=== PATIENT | male | born 1980 | race Caucasian/White ===

== ENCOUNTER 2018-11-14 18:20 | Emergency (ER) | payer OTHER ==
[2018-11-14 18:57] VITALS: TEMP 98.2; BMI 29.0
--- NOTE | 2018-11-14 19:11 | PDOC ---
History of Present Illness - General Chief Complaint: Alcohol intoxication Stated Complaint: INTOX Time Seen by Provider: 11/14/18 19:09 History Source: Patient - History of Present Illness Initial Comments: 11/14/18 19:28 The patient is a 38 year old male with a PMH of Hep C, HTN, Heroin (on suboxone ) and ETOH abuse (with associated DT's) who presents from [facility] for high blood pressure. States he drink 5-10 40's of vodka daily and his last drink was around 11 a.m. today. Patient now c/o non-focal headache. No vomiting, visual changes. Denies any chest pain, shortness of breath, abdominal pain, numbness/tingling, dysuria/hematuria. NKDA Surgical: non reported Social: ETOH abuse, h/o heroin abuse Past History - Past Medical History Allergies/Adverse Reactions: Allergies Allergy/AdvReac Type Severity Reaction Status Date / Time No Known Allergies Allergy Verified 11/14/18 18:55 COPD: No Psychiatric Problems: Yes (etoh abuse) - Suicide/Smoking/Psychosocial Hx Smoking History: Never smoked Have you smoked in the past 12 months: No Information on smoking cessation initiated: No Hx Alcohol Use: No Drug/Substance Use Hx: No Review of Systems - Review of Systems Constitutional: No: Chills, Fever Respiratory: No: Cough, Shortness of Breath Cardiac (ROS): No: Chest Pain, Lightheadedness, Palpitations, Syncope ABD/GI: No: Constipated, Diarrhea, Nausea, Vomiting : No: Burning, Dysuria *Physical Exam - Vital Signs Last Vital Signs Temp Pulse Resp BP Pulse Ox 98.2 F 97 H 16 156/94 100 11/14/18 18:20 11/14/18 18:20 11/14/18 18:20 11/14/18 18:20 11/14/18 18:20 - Physical Exam General Appearance: Yes: Nourished, Appropriately Dressed HEENT: positive: Normal Voice, Hearing Grossly Normal Neck: positive: Trachea midline, Supple Respiratory/Chest: positive: Lungs Clear, Normal Breath Sounds Cardiovascular: positive: S1, S2 Gastrointestinal/Abdominal: positive: Normal Bowel Sounds, Soft Neurologic: positive: Fully Oriented, Alert Heart Score/ECG Review - ECG Impressions Comment:: 11/14/18 23:13 HR 82, no deviation, prolonged QT, no DEVYN/STD/TWI ED Treatment Course - LABORATORY CBC & Chemistry Diagram: 11/14/18 21:00 11/14/18 21:00 Medical Decision Making - Medical Decision Making 11/14/18 19:32 38 year old male with ETOH and h/o DT's presents from [facility] for isolated elevated BP. Mildy hypertensive (156/94) - other VS unremarkable. Will medically clear including r/o ACS and discharge to [facility]. 11/14/18 20:55 Case d/w [facility] - will accept patient for detox 11/14/18 23:10 EKG non-ischemic as documented in EMR, prolonged QT c/w suboxone 11/14/18 23:11 11/14/18 23:14 No leukocytosis LFT's elevated Alcohol level < 3.0 Chest XR shows no infiltrate/consolidation 11/14/18 23:26 Patient reassessed @ bedside, tolerating PO intake, improved Repeat BP 143/81 HR 87 Will discharge to [facility] *DC/Admit/Observation/Transfer Diagnosis at time of Disposition: Alcohol intoxication - Discharge Dispostion Disposition: HOME Condition at time of disposition: Good Decision to Admit order: No - Referrals - Patient Instructions Printed Discharge Instructions: DI for Alcohol Abuse Additional Instructions: Return to the Emergency Department for any new/worsening/concerning symptoms. - Post Discharge Activity
[2018-11-14] MEDS ORDERED: chlordiazePOXIDE HCL 25 MG CAPSULE PO ONE (19:26)
[2018-11-14] MEDS ORDERED: SODIUM CHLORIDE 0.9% 500 ML INFUS.BAG IV ONE (19:27)
[2018-11-14] MEDS ORDERED: FOLIC ACID INJECTION - 1 MG, THIAMINE HCL 100 MG, MULTIVIT INJECTION ADULT 10 ML in SOD... IVPB ONE (20:06)
[2018-11-14 21:14] LABS: BASO % 0.8 % (0-2.0); EOS % 0.5 % (0-4.5); HEMATOCRIT 43.4 % (35.4-49); HEMOGLOBIN 15.1 GM/dL (11.7-16.9); LYMPH % 18.7 % (8-40); MCH 32.1 pg (25.7-33.7); MCHC 34.9 g/dl (32.0-35.9); MEAN PLT VOLUME 8.2 fl (7.5-11.1); MONO % 10.8 % (3.8-10.2); NEUT % 69.2 % (42.8-82.8); PLATELET COUNT 147 K/MM3 (134-434); RBC 4.72 M/mm3 (4.00-5.60); RDW 14.4 % (11.9-15.9); WHITE BLOOD COUNT 8.3 K/mm3 (4.0-10.0)
[2018-11-14] MEDS ORDERED: chlordiazePOXIDE HCL 25 MG CAPSULE ONE (21:16)
[2018-11-14 21:43] LABS: ALBUMIN 3.9 g/dl (3.4-5.0); ALK PHOS 113 U/L (45-117); ANION GAP 7 MMOL/L (8-16); BILIRUBIN,TOTAL 1.2 mg/dL (0.2-1); BLOOD UREA NITROGEN 8 mg/dL (7-18); CALCIUM 8.7 mg/dL (8.5-10.1); CHLORIDE 100 mmol/L (98-107); CO2 31 mmol/L (21-32); CREATININE 0.8 mg/dL (0.55-1.3); GLUCOSE,RANDOM 109 mg/dL (74-106); POTASSIUM 3.8 mmol/L (3.5-5.1); SGOT/AST 99 U/L (15-37); SGPT/ALT 85 U/L (13-61); SODIUM 139 mmol/L (136-145); TOT PROT 7.4 g/dl (6.4-8.2)
--- NOTE | 2018-11-14 23:19 | PDOC ---
Documentation entered by Eloy Coyne SCRIBE, acting as scribe for Yudelka Lenz MD. Yudelka Lenz MD: This documentation has been prepared by the Stanford luna Xhesika, SCRIBE, under my direction and personally reviewed by me in its entirety. I confirm that the documentation accurately reflects all work, treatment, procedures, and medical decision making performed by me. Attending Attestation - Resident Resident Name: Myrna Martinez - ED Attending Attestation I have performed the following: I have examined & evaluated the patient, The case was reviewed & discussed with the resident, I agree w/resident's findings & plan, Exceptions are as noted - HPI HPI: 11/14/18 20:24 The patient is a 38 year old male, with a significant past medical history of Hep C, HTN, Heroine abuse and ETOH abuse who presents to the emergency department with alcohol intoxication. The patient went to [facility] for detox, however, he was sent here to be cleared. The patient states he drinks 5-10 quarts of vodka daily and his last drink was at 11am today. Patient states he is unsteady when he tried to ambulate. The patient denies chest pain, headache or dizziness. The patient denies fever, chills, nausea, vomit, diarrhea or constipation. The patient denies dysuria, frequency, urgency or hematuria. Allergies: NKDA Past surgical history: None reported Social history: Heroine abuse and ETOH abuse - Physicial Exam PE: 11/14/18 20:24 GENERAL: (+) disheveled. (+) reddish complexion. Awake, alert, and fully oriented HEAD: No signs of trauma EYES: PERRLA, EOMI, sclera anicteric, conjunctiva clear ENT: Auricles normal inspection, hearing grossly normal, nares patent, oropharynx clear without exudates. Moist mucosa NECK: Normal ROM, supple, no lymphadenopathy, JVD, or masses LUNGS: Breath sounds equal, clear to auscultation bilaterally. No wheezes, and no crackles HEART: Regular rate and rhythm, normal S1 and S2, no murmurs, rubs or gallops ABDOMEN: Soft, nontender, normoactive bowel sounds. No guarding, no rebound. No masses EXTREMITIES: Normal range of motion, no edema. No clubbing or cyanosis. No cords, erythema, or tenderness NEUROLOGICAL: Cranial nerves II through XII grossly intact. Normal speech. - Medical Decision Making 11/14/18 23:18 pt is alert and conversant ekg is nsr negative troponin pt has no vomiting or fever or diarrhea or chest pain pt is medically cleared for [facility] detox
[2018-11-15 01:25] VITALS: BP 145/90; PULSE 90
--- NOTE | 2018-11-15 11:38 | EKG ---
Test Reason : Blood Pressure : / mmHG Vent. Rate : 082 BPM Atrial Rate : 082 BPM P-R Int : 148 ms QRS Dur : 084 ms QT Int : 426 ms P-R-T Axes : 061 062 054 degrees QTc Int : 497 ms NORMAL SINUS RHYTHM PROLONGED QT ABNORMAL ECG NO PREVIOUS ECGS AVAILABLE Confirmed by Edgar Taveras MD ([id number]) on 11/15/2018 11:37:39 AM Referred By: Confirmed By:Edgar Taveras MD
== END 2018-11-15 01:25 | disposition home or self-care (01) ==
LOC: JER 18:20
PROC: 3E033GC Introduction of Other Therapeutic Substance into Peripheral Vein, Percutaneous Approach (ICD-10-PCS; principal; 2018-11-14)
DX: F10.120 Alcohol abuse with intoxication, uncomplicated (principal); I10 Essential (primary) hypertension; F11.10 Opioid abuse, uncomplicated; B18.2 Chronic viral hepatitis C
CPT/HCPCS: 36415; 71045-TC-FY; 80053; 80307; 82550; 84484; 85025; 93005; 93010; 96365; 96366; 99282-25; J7030

== ENCOUNTER 2018-11-15 02:11 | Inpatient (IN) | payer OTHER ==
--- NOTE | 2018-11-14 19:54 | HP ---
Screened but not Admitted - Documentation of Visit Screened but not Admitted: Yes Left Prior to Completion of Assessment: No Insurance Authorization Denied: No Patient Does Not Meet Criteria for Admission: No Level of Care Recommended at this Time: ER Evaluation/Care Additional Information/Explanation: Pt states he felt like he was about to have a seizure. BP high at 168/102, Pr 110. JEANNIE-0. Has been binge drinking. Last drink about 6 hours ago. Considering his high BP and RI and sense of impending seizure and a delay here for him to get medications- pt was sent to ER
--- NOTE | 2018-11-15 02:34 | HP ---
CIWA Score Nausea/Vomitin (x 10) Muscle Tremors: 4-Moderate,w/Arms Extend Anxiety: 3 Agitation: 3 Paroxysmal Sweats: 2 Orientation: 1-Uncertain about Date Tacttile Disturbances: 0-None Auditory Disturbances: 0-None Visual Disturbances: 0-None Headache: 3-Moderate CIWA-Ar Total Score: 19 - Admission Criteria OASAS Guidelines: Admission for Medically Managed Detox: Requires at least one of the followin. CIWA greater than 12 2. Seizures within the past 24 hours 3. Delirium tremens within the past 24 hours 4. Hallucinations within the past 24 hours 5. Acute intervention needed for co occurring medical disorder 6. Acute intervention needed for co occurring psychiatric disorder 7. Severe withdrawal that cannot be handled at a lower level of care (continued vomiting, continued diarrhea, abnormal vital signs) requiring intravenous medication and/or fluids 8. Admission ROS [facility] Chief Complaint: Alcohol withdrawal symptoms Allergies/Adverse Reactions: Allergies Allergy/AdvReac Type Severity Reaction Status Date / Time No Known Allergies Allergy Verified 11/14/18 18:55 History of Present Illness: 38 years old male with a long history of alcohol dependence is seeking admission to detox. Patient has been in previous detox at [facility] and reports 18 months of sobriety. He has medical history of Hep C, depression, seizures and hypertension. Denies suicide attempt and suicidal ideation at this time. This is his first detox and admission at [facility]. He is on Suboxone (Gen ) 8-2mg sublingual film dispensed by Dr. Jessica Barrett. Last filled on 11/04/2018. Last day medicated is 11/15/2018. Exam Limitations: No Limitations - Ebola screening Have you traveled outside of the country in the last 21 days: No Have you had contact with anyone from an Ebola affected area: No Have you been sick,other than usual withdrawal symptoms: No - Review of Systems Constitutional: Chills, Loss of Appetite, Night Sweats, Changes in sleep, Weakness EENT: reports: Sinus Pressure Respiratory: reports: No Symptoms reported Cardiac: reports: No Symptoms Reported GI: reports: Diarrhea (x 3), Poor Appetite, Poor Fluid Intake, Vomiting (x 10), Abdominal cramping : reports: No Symptoms Reported Musculoskeletal: reports: No Symptoms Reported Integumentary: reports: Dryness, Flushing Neuro: reports: Headache, Tremors Endocrine: reports: No Symptoms Reported Hematology: reports: No Symptoms Reported Psychiatric: reports: Mood/Affect Appropiate Other Systems: Reviewed and Negative Patient History - Patient Medical History Hx Anemia: No Hx Asthma: No Hx Chronic Obstructive Pulmonary Disease (COPD): No Hx Cancer: No Hx Cardiac Disorders: No Hx Congestive Heart Failure: No Hx Hypertension: Yes (Not on medication) Hx Hypercholesterolemia: No Hx Pacemaker: No HX Cerebrovascular Accident: No Hx Seizures: Yes (Not on medication) Hx Dementia: No Hx Diabetes: No Hx Gastrointestinal Disorders: No Hx Liver Disease: Yes (Hep C) Hx Genitourinary Disorders: No Hx Sexually Transmitted Disorders: No Hx Renal Disease (ESRD): No Hx Thyroid Disease: No Hx Human Immunodeficiency Virus (HIV): No (Negative 2018) Hx Hepatitis C: Yes (Not treated) Hx Depression: Yes (Not on medication) Hx Suicide Attempt: No (Denies suicidal ideation at this time) Hx Bipolar Disorder: No Hx Schizophrenia: No - Patient Surgical History Past Surgical History: No - PPD History Previous Implant?: No Documented Results: Negative w/o proof Implanted On Prior [facility] Admission?: No PPD to be Administered?: Yes - Reproductive History Patient is a Female of Child Bearing Age (11 -55 yrs old): No (Male) - Smoking Cessation Smoking history: Never smoked Have you smoked in the past 12 months: No Hx Chewing Tobacco Use: No Initiated information on smoking cessation: No - Substance & Tx. History Hx Alcohol Use: Yes Substance Use Type: Alcohol Hx Substance Use Treatment: Yes ([facility]) - Substances abused Alcohol Substance route: Oral Frequency: Daily Amount used: 8 pints of rum Age of first use: 14 Date of last use: 11/14/18 Family Disease History - Family Disease History Family History: Denies Admission Physical Exam S - Physical General Appearance: Yes: Moderate Distress, Alcohol on Breath, Sweating, Anxious HEENTM: Yes: Within Normal Limits Respiratory: Yes: Lungs Clear, Normal Breath Sounds, No Respiratory Distress Neck: Yes: Supple Breast: Yes: Breast Exam Deferred Cardiology: Yes: Tachycardia Abdominal: Yes: Normal Bowel Sounds Genitourinary: Yes: Within Normal Limits Back: Yes: Normal Inspection Musculoskeletal: Yes: Within Normal Limits Extremities: Yes: Tremors, Swelling (bilatyeral hands, ankles and face) Neurological: Yes: Alert, Normal Mood/Affect Integumentary: Yes: Warm Lymphatic: Yes: Within Normal Limits - Diagnostic (1) Alcohol dependence with uncomplicated withdrawal Current Visit: Yes Status: Acute (2) Hep C w/o coma, chronic Current Visit: Yes Status: Chronic (3) Hypertension Current Visit: Yes Status: Chronic Qualifiers: Hypertension type: essential hypertension Qualified Code(s): I10 - Essential (primary) hypertension (4) Depression Current Visit: Yes Status: Chronic Qualifiers: Depression Type: unspecified Qualified Code(s): F32.9 - Major depressive disorder, single episode, unspecified (5) Seizure Current Visit: Yes Status: Chronic Cleared for Admission [facility] - Detox or Rehab S Level of Care: Medically Managed Detox Regimen/Protocol: Librium Vital Signs - Vital Signs Vital signs refused: No Temperature: 98.4 F Temperature source: Oral Pulse Rate: 92 Respiratory Rate: 20 Blood Pressure: 164/100 BP Location: Right Arm Blood Pressure position: Sitting - Height Height: 6 ft 1 in - Weight Weight: 230 lb - BMI Body Mass Index (BMI): 30.3 - Bowel Function Bowel Movement: Yes Urine Drug Screen - Test Device Lot number: [id number] Expiration date: 06/10/20 - Control Is test valid?: Yes - Results Drug screen NEGATIVE: No Urine drug screen results: THC-Marijuana, BZO-Benzodiazepines, BUP-Suboxone Inpatient Rehab Admission - Rehab Decision to Admit Inpatient rehab admission?: No
[2018-11-15] MEDS ORDERED: MAGNESIUM CITRATE 300 ML BOTTLE PO PRN (02:43)
[2018-11-15] MEDS ORDERED: MAGNESIUM HYDROX 2400MG/30ML ORAL SUSPENSION 30 ML CUP PO PRN (02:43)
[2018-11-15] MEDS ORDERED: IBUPROFEN 400 MG TABLET (FP) PO PRN (02:43)
[2018-11-15] MEDS ORDERED: ACETAMINOPHEN 325 MG TABLET (FP) PO PRN ×2 (02:43)
[2018-11-15] MEDS ORDERED: MENTHOL/PHENOL 1 EACH UD MM PRN (02:43)
[2018-11-15] MEDS ORDERED: BISMUTH SUBSALICYLATE 524 MG/30 ML UD PO PRN (02:43)
[2018-11-15] MEDS ORDERED: MAG HYDROX/AL HYDROX/SIMETH 30 ML UNIT-DOSE CUP PO PRN (02:43)
[2018-11-15] MEDS ORDERED: hydrOXYzine PAMOATE 25 MG CAPSULE (FP) PO PRN (02:43)
[2018-11-15] MEDS ORDERED: METHOCARBAMOL 500 MG TABLET PO PRN (02:43)
[2018-11-15] MEDS ORDERED: cloNIDine HCL 0.1 MG TABLET PO ONE (02:59)
[2018-11-15 03:05] VITALS: BMI 30.3
[2018-11-15] MEDS: chlordiazePOXIDE HCL 25 MG CAPSULE PO PRN (03:47)
[2018-11-15] MEDS: MELATONIN 5 MG TABLETS PO PRN (03:47)
[2018-11-15] MEDS: chlordiazePOXIDE HCL 25 MG CAPSULE PO SCH ×4 (06:02→22:09)
[2018-11-15] MEDS: PRENATAL VITAMINS W/ FOLIC ACID TABLET (FP) PO SCH (09:52)
[2018-11-15] MEDS: BUPRENORPHINE/NALOXONE 8 MG/2 MG FILM PACKET SL SCH ×2 (09:52→22:09)
--- NOTE | 2018-11-15 10:45 | PN ---
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
[2018-11-15] MEDS ORDERED: chlordiazePOXIDE HCL 25 MG CAPSULE PO ONE (14:00)
--- NOTE | 2018-11-15 14:19 | EKG ---
Test Reason : Blood Pressure : / mmHG Vent. Rate : 077 BPM Atrial Rate : 077 BPM P-R Int : 156 ms QRS Dur : 082 ms QT Int : 422 ms P-R-T Axes : 072 063 054 degrees QTc Int : 477 ms NORMAL SINUS RHYTHM NORMAL ECG WHEN COMPARED WITH ECG OF 14-NOV-2018 22:56, NO SIGNIFICANT CHANGE WAS FOUND Confirmed by Edgar Taveras MD ([id number]) on 11/15/2018 2:19:11 PM Referred By: Confirmed By:Edgar Taveras MD
[2018-11-15] MEDS: THIAMINE HCL 100 MG TABLET (FP) PO SCH (22:08)
[2018-11-16] MEDS: chlordiazePOXIDE HCL 25 MG CAPSULE PO SCH ×4 (05:35→22:17)
[2018-11-16] MEDS: PRENATAL VITAMINS W/ FOLIC ACID TABLET (FP) PO SCH (10:09)
[2018-11-16] MEDS: BUPRENORPHINE/NALOXONE 8 MG/2 MG FILM PACKET SL SCH ×2 (10:09→22:17)
--- NOTE | 2018-11-16 10:32 | PN ---
S CIWA - CIWA Score Nausea/Vomitin-Mild Nausea/No Vomiting Muscle Tremors: 3 Anxiety: 2 Agitation: 3 Paroxysmal Sweats: 1-Minimal Palms Moist Orientation: 2-Disoriented Date<2 days Tacttile Disturbances: 0-None Auditory Disturbances: 0-None Visual Disturbances: 0-None Headache: 1-Very Mild CIWA-Ar Total Score: 13 BHS Progress Note (SOAP) Subjective: doing fine with suboxone feeling better today Objective: 11/16/18 10:31 Vital Signs Temperature 98.6 F 11/16/18 10:01 Pulse Rate 75 11/16/18 10:01 Respiratory Rate 20 11/16/18 10:01 Blood Pressure 144/94 11/16/18 10:01 O2 Sat by Pulse Oximetry (%) 11/16/18 10:32 lab pending Assessment: 11/16/18 10:32 withdrawal sx 11/16/18 10:33 denies history of hypertension Plan: continue detox begin amlodipin 5 mg po bid clonidine 0.1 mg po q6h prn for hypertension
[2018-11-16] MEDS ORDERED: cloNIDine HCL 0.1 MG TABLET PO PRN (10:33)
[2018-11-16 12:38] LABS: HEMATOCRIT 42.5 % (35.4-49); HEMOGLOBIN 14.7 GM/dL (11.7-16.9); MCH 32.3 pg (25.7-33.7); MCHC 34.7 g/dl (32.0-35.9); MEAN CELL VOLUME 93.3 fl (80-96); MEAN PLT VOLUME 8.6 fl (7.5-11.1); PLATELET COUNT 108 K/MM3 (134-434); RBC 4.56 M/mm3 (4.00-5.60); RDW 14.1 % (11.9-15.9); WHITE BLOOD COUNT 3.8 K/mm3 (4.0-10.0)
[2018-11-16 12:55] LABS: ALBUMIN 3.3 g/dl (3.4-5.0); ALK PHOS 97 U/L (45-117); ANION GAP 7 MMOL/L (8-16); BILIRUBIN,TOTAL 0.9 mg/dL (0.2-1); BLOOD UREA NITROGEN 10 mg/dL (7-18); CALCIUM 8.8 mg/dL (8.5-10.1); CHLORIDE 103 mmol/L (98-107); CO2 28 mmol/L (21-32); CREATININE 0.8 mg/dL (0.55-1.3); GLUCOSE,RANDOM 99 mg/dL (74-106); POTASSIUM 3.4 mmol/L (3.5-5.1); SGOT/AST 117 U/L (15-37); SGPT/ALT 83 U/L (13-61); SODIUM 138 mmol/L (136-145); TOT PROT 6.6 g/dl (6.4-8.2)
[2018-11-16] MEDS: chlordiazePOXIDE HCL 25 MG CAPSULE PO PRN (12:59)
[2018-11-16] MEDS: amLODIPine BESYLATE 5 MG TABLET (FP) PO SCH ×2 (12:59→22:17)
[2018-11-16] MEDS: THIAMINE HCL 100 MG TABLET (FP) PO SCH (22:17)
[2018-11-17] MEDS ORDERED: chlordiazePOXIDE HCL 10 MG CAPSULE PO PRN (05:00)
[2018-11-17] MEDS: chlordiazePOXIDE HCL 10 MG CAPSULE PO SCH ×4 (05:33→22:18)
[2018-11-17] MEDS: amLODIPine BESYLATE 5 MG TABLET (FP) PO SCH ×2 (10:46→22:18)
[2018-11-17] MEDS: PRENATAL VITAMINS W/ FOLIC ACID TABLET (FP) PO SCH (10:46)
[2018-11-17] MEDS: BUPRENORPHINE/NALOXONE 8 MG/2 MG FILM PACKET SL SCH ×2 (10:47→22:18)
--- NOTE | 2018-11-17 11:23 | PN ---
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 called Dr Jessica Barrett at [phone] for follow up appointment, weekend clinic open for established clients 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 patient is able to walk in on Wednesday for suboxone refill Objective: 11/17/18 11:30 Vital Signs Temperature 97.3 F L 11/17/18 09:12 Pulse Rate 75 11/17/18 09:12 Respiratory Rate 18 11/17/18 09:12 Blood Pressure 129/81 11/17/18 09:12 O2 Sat by Pulse Oximetry (%) Laboratory Last Values WBC 3.8 K/mm3 (4.0-10.0) L 11/16/18 07:30 RBC 4.56 M/mm3 (4.00-5.60) 11/16/18 07:30 Hgb 14.7 GM/dL (11.7-16.9) 11/16/18 07:30 Hct 42.5 % (35.4-49) 11/16/18 07:30 MCV 93.3 fl (80-96) 11/16/18 07:30 MCH 32.3 pg (25.7-33.7) 11/16/18 07:30 MCHC 34.7 g/dl (32.0-35.9) 11/16/18 07:30 RDW 14.1 % (11.9-15.9) 11/16/18 07:30 Plt Count 108 K/MM3 (134-434) L D 11/16/18 07:30 MPV 8.6 fl (7.5-11.1) 11/16/18 07:30 Sodium 138 mmol/L (136-145) 11/16/18 07:30 Potassium 3.4 mmol/L (3.5-5.1) L 11/16/18 07:30 Chloride 103 mmol/L (98-107) 11/16/18 07:30 Carbon Dioxide 28 mmol/L (21-32) 11/16/18 07:30 Anion Gap 7 MMOL/L (8-16) L 11/16/18 07:30 BUN 10 mg/dL (7-18) 11/16/18 07:30 Creatinine 0.8 mg/dL (0.55-1.3) 11/16/18 07:30 Creat Clearance w eGFR 107.07 (>60) 11/16/18 07:30 Random Glucose 99 mg/dL (74-106) 11/16/18 07:30 Calcium 8.8 mg/dL (8.5-10.1) 11/16/18 07:30 Total Bilirubin 0.9 mg/dL (0.2-1) 11/16/18 07:30 AST 117 U/L (15-37) H 11/16/18 07:30 ALT 83 U/L (13-61) H 11/16/18 07:30 Alkaline Phosphatase 97 U/L (45-117) 11/16/18 07:30 Total Protein 6.6 g/dl (6.4-8.2) 11/16/18 07:30 Albumin 3.3 g/dl (3.4-5.0) L 11/16/18 07:30 RPR Titer Nonreactive (NONREACTIVE) 11/16/18 07:30 lab noted 11/17/18 11:31 repeat K+ and ast ordered Assessment: 11/17/18 11:32 alcohol withdrawal sx repeat K+ and ast Plan: continue detox
[2018-11-17] MEDS: MELATONIN 5 MG TABLETS PO PRN (22:18)
[2018-11-17] MEDS: THIAMINE HCL 100 MG TABLET (FP) PO SCH (22:18)
[2018-11-18] MEDS ORDERED: chlordiazePOXIDE HCL 10 MG CAPSULE PO SCH (05:00)
[2018-11-18 09:27] VITALS: BP 152/86; PULSE 94; TEMP 97
[2018-11-18] MEDS: PRENATAL VITAMINS W/ FOLIC ACID TABLET (FP) PO SCH (10:48)
[2018-11-18] MEDS: amLODIPine BESYLATE 5 MG TABLET (FP) PO SCH (10:48)
[2018-11-18] MEDS: BUPRENORPHINE/NALOXONE 8 MG/2 MG FILM PACKET SL SCH (10:48)
--- NOTE | 2018-11-18 13:55 | DS ---
[facility] Detox Discharge Summary Admission Date: 11/15/18 Discharge Date: 11/18/18 - History Present History: Alcohol Dependence, Opioid Dependence Additional Comments: PATIENT REPORTS THAT CURRENT WITHDRAWAL / DETOX SYMPTOMS ARE MINIMAL IN DEGREE AND THAT HE FEELS WELL OVERALL AT TIME OF DISCHARGE FROM DETOX UNIT. PATIENT GOING TO [facility] ([place] FOR AFTERCARE. PATIENT WAS DISCHARGED FROM DETOX UNIT TO BE TAKEN OVER TO REHAB UNIT IN STABLE MEDICAL CONDITION. Pertinent Past History: Hep C, Depression, HTN, History of Suboxone Maintenance Therapy, History of Seizures, Hypokalemia. - Physical Exam Results Vital Signs: Vital Signs Temperature 97.0 F L 11/18/18 09:26 Pulse Rate 94 H 11/18/18 09:26 Respiratory Rate 18 11/18/18 09:26 Blood Pressure 152/86 11/18/18 09:26 O2 Sat by Pulse Oximetry (%) Pertinent Admission Physical Exam Findings: WITHDRAWAL SYMPTOMS. Laboratory Tests 11/16/18 11/16/18 11/16/18 07:30 07:30 07:30 WBC 3.8 L RBC 4.56 Hgb 14.7 Hct 42.5 MCV 93.3 MCH 32.3 MCHC 34.7 RDW 14.1 Plt Count 108 L D MPV 8.6 Sodium 138 Potassium 3.4 L Chloride 103 Carbon Dioxide 28 Anion Gap 7 L BUN 10 Creatinine 0.8 Creat Clearance w eGFR 107.07 Random Glucose 99 Calcium 8.8 Total Bilirubin 0.9 AST 117 H ALT 83 H Alkaline Phosphatase 97 Total Protein 6.6 Albumin 3.3 L RPR Titer Nonreactive LABS NOTED. - Treatment Hospital Course: Detox Protocol Followed, Detoxed Safely, Responded well, Discharged Condition Good, Rehab Referral Accepted Patient has Accepted a Rehab Referral to: [facility] ([place], [place]). - Medication Discharge Medications: Ambulatory Orders Suboxone 8Mg/2Mg Sl Film - 1 film SL BID 11/15/18 Buprenorphine/Naloxone [Suboxone 8Mg/2Mg Sl Film -] 1 each SL BID 2 Days #3 film MDD 2 11/17/18 - Diagnosis (1) Alcohol dependence with uncomplicated withdrawal Status: Acute (2) Depression Status: Chronic Qualifiers: Depression Type: unspecified Qualified Code(s): F32.9 - Major depressive disorder, single episode, unspecified (3) Hep C w/o coma, chronic Status: Chronic (4) Hypertension Status: Chronic Qualifiers: Hypertension type: essential hypertension Qualified Code(s): I10 - Essential (primary) hypertension (5) Seizure Status: Chronic (6) Hypokalemia Status: Acute - AMA Did Patient Leave Against Medical Advice: No
--- NOTE | 2018-11-18 13:56 | PN ---
S CIWA - CIWA Score Nausea/Vomitin-No Nausea/No Vomiting Muscle Tremors: None Anxiety: 3 Agitation: 0-Normal Activity Paroxysmal Sweats: 2 Orientation: 0-Oriented Tacttile Disturbances: 1-Very Mild Itch/Numbness Auditory Disturbances: 0-None Visual Disturbances: 1-Very Mild Sensitivity Headache: 0-None Present CIWA-Ar Total Score: 7 BHS Progress Note (SOAP) Subjective: Tremors, Anxious. Objective: PATIENT A & O X 3, OBSERVED AMBULATING ON UNIT UNASSISTED. IN NO ACUTE DISTRESS. 11/18/18 13:58 Vital Signs Temperature 97.0 F L 11/18/18 09:26 Pulse Rate 94 H 11/18/18 09:26 Respiratory Rate 18 11/18/18 09:26 Blood Pressure 152/86 11/18/18 09:26 O2 Sat by Pulse Oximetry (%) Laboratory Tests 11/16/18 11/16/18 11/16/18 07:30 07:30 07:30 WBC 3.8 L RBC 4.56 Hgb 14.7 Hct 42.5 MCV 93.3 MCH 32.3 MCHC 34.7 RDW 14.1 Plt Count 108 L D MPV 8.6 Sodium 138 Potassium 3.4 L Chloride 103 Carbon Dioxide 28 Anion Gap 7 L BUN 10 Creatinine 0.8 Creat Clearance w eGFR 107.07 Random Glucose 99 Calcium 8.8 Total Bilirubin 0.9 AST 117 H ALT 83 H Alkaline Phosphatase 97 Total Protein 6.6 Albumin 3.3 L RPR Titer Nonreactive LABS NOTED. Assessment: 11/18/18 13:59 COMPLETION OF DETOX REGIMEN. 11/18/18 14:00 Plan: SINCE PATIENT REPORTS THAT CURRENT WITHDRAWAL / DETOX SYMPTOMS ARE MINIMAL IN DEGREE AND THAT HE FEELS WELL OVERALL, AT PATIENTS REQUEST, HE WAS GRANTED AN EARLY DISCHARGE FROM DETOX UNIT TODAY SO THAT HE MAY PROCEED ON TO [facility]CARE [facility] ([place], [place]).
== END 2018-11-18 13:20 | disposition other institution (70) | DRG 775 ==
LOC: YASAS 02:11 → Y3N 02:50
PROVIDERS: ADMIT Surgery; ATTEND Surgery
PROC: HZ2ZZZZ Detoxification Services for Substance Abuse Treatment (ICD-10-PCS; principal; 2018-11-15)
DX: F10.230 Alcohol dependence with withdrawal, uncomplicated (principal); F32.9 Major depressive disorder, single episode, unspecified; I10 Essential (primary) hypertension; E78.5 Hyperlipidemia, unspecified; B18.2 Chronic viral hepatitis C; Z86.69 Personal history of other diseases of the nervous system and sense organs
CPT/HCPCS: 36415; 71045-TC-FY; 80053; 80307; 82550; 84484; 85025; 85027; 86593; 93005; 93010; 96365; 96366; 99282-25; J0735; J7030

== ENCOUNTER 2018-11-18 13:34 | Inpatient (IN) | payer OTHER ==
[2018-11-18] MEDS ORDERED: ACETAMINOPHEN 325 MG TABLET (FP) PO PRN (14:05)
[2018-11-18] MEDS ORDERED: guaiFENesin 200 MG/10 ML 10 ML UNIT-DOSE CUPS PO PRN (14:05)
[2018-11-18] MEDS ORDERED: MAGNESIUM HYDROX 2400MG/30ML ORAL SUSPENSION 30 ML CUP PO PRN (14:05)
[2018-11-18] MEDS ORDERED: LOPERAMIDE HCL 2 MG CAPSULE PO PRN (14:05)
[2018-11-18] MEDS ORDERED: MENTHOL/PHENOL 1 EACH UD MM PRN (14:05)
[2018-11-18] MEDS ORDERED: MAG HYDROX/AL HYDROX/SIMETH 30 ML UNIT-DOSE CUP PO PRN (14:05)
[2018-11-18] MEDS ORDERED: P-EPHED 60MG/TRIPROLIDI 2.5MG TABLET PO PRN (14:05)
[2018-11-18] MEDS ORDERED: MAGNESIUM CITRATE 300 ML BOTTLE PO PRN (14:05)
--- NOTE | 2018-11-18 14:09 | HP ---
EDILBERTO AGUIAR Rehab Assess/Revision - Admission History Admitted to Rehab from: [facility] Date of Admission to Rehab: 11/18/2018 - Vital signs Vital Signs: Vital Signs Period Temp Pulse Resp BP Sys/Church Pulse Ox Last 24 Hr 98.1 F 82 17 114/74 - Findings Detox History & Physical reviewed: Yes Concur with findings: Yes Comments/Additional Findings: PATIENT'S MEDICAL / MEDICATION HISTORY REVIEWED PRIOR TO DISCHARGE FROM DETOX UNIT. POTASSIUM LEVEL ORDERED FOR TOMORROW AM ( UNCLEAR IF HYPOKALEMIA WAS TREATED WHILE PATIENT WAS ADMITTED FOR DETOX). COVERING MEDICAL PROVIDER TO EVALUATE AFTER RESULT IS AVAILABLE. PATIENT WAS DISCHARGED FROM DETOX UNIT TO BE TAKEN OVER TO REHAB UNIT IN STABLE MEDICAL CONDITION. Inpatient Rehab Admission - Rehab Decision to Admit Inpatient rehab admission?: Yes - Initial Determination Are CD services needed?: Yes Free of communicable disease: Yes Not in need of hospitalization: Yes - Rehab Admission Criteria Previous failed treatment: Yes Poor recovery environment: Yes Comorbidities: Yes Lacks judgement: No Patient is meeting Inpatient Rehab admission criteria:: Yes
[2018-11-18] MEDS: BUPRENORPHINE/NALOXONE 8 MG/2 MG FILM PACKET SL SCH (21:33)
[2018-11-18] MEDS: THIAMINE HCL 100 MG TABLET (FP) PO SCH (21:33)
[2018-11-18] MEDS: amLODIPine BESYLATE 5 MG TABLET (FP) PO SCH (21:33)
[2018-11-18] MEDS: MELATONIN 5 MG TABLETS PO PRN (21:34)
[2018-11-19] MEDS: amLODIPine BESYLATE 5 MG TABLET (FP) PO SCH ×2 (09:33→21:13)
[2018-11-19] MEDS: PRENATAL VITAMINS W/ FOLIC ACID TABLET (FP) PO SCH (09:33)
[2018-11-19] MEDS: BUPRENORPHINE/NALOXONE 8 MG/2 MG FILM PACKET SL SCH ×2 (09:33→21:13)
[2018-11-19] MEDS: MELATONIN 5 MG TABLETS PO PRN (21:13)
[2018-11-19] MEDS: THIAMINE HCL 100 MG TABLET (FP) PO SCH (21:13)
[2018-11-20] MEDS: amLODIPine BESYLATE 5 MG TABLET (FP) PO SCH ×2 (09:37→21:12)
[2018-11-20] MEDS: PRENATAL VITAMINS W/ FOLIC ACID TABLET (FP) PO SCH (09:37)
[2018-11-20] MEDS: BUPRENORPHINE/NALOXONE 8 MG/2 MG FILM PACKET SL SCH ×2 (09:37→21:12)
[2018-11-20] MEDS: THIAMINE HCL 100 MG TABLET (FP) PO SCH (21:12)
[2018-11-20] MEDS: MELATONIN 5 MG TABLETS PO PRN (21:12)
[2018-11-21] MEDS: PRENATAL VITAMINS W/ FOLIC ACID TABLET (FP) PO SCH (10:19)
[2018-11-21] MEDS: BUPRENORPHINE/NALOXONE 8 MG/2 MG FILM PACKET SL SCH (10:19)
[2018-11-21] MEDS: amLODIPine BESYLATE 5 MG TABLET (FP) PO SCH (10:19)
--- NOTE | 2018-11-21 11:11 | PN ---
[facility] Progress Note Note: PT DECLINED TO CONTINUE WITH REHAB STATING THAT HE NEVER WANTED TO BE IN REHAB AFTER DETOX BECAUSE WANTS TO GO BACK TO HIS SUBOXONE TREATMENT WITH DR. ZULEMA SEPULVEDA AT THE [facility] ON [address] [place], [place]. PT REPORTS HE IS ON SUBOXONE 8-2 MG SL TWICE A DAY AND STATES "I CAME HERE BECAUSE I WANTED TO DETOX FROM ALCOHOL AND WAS HOMELESS". PT COMPLETED DETOX AND REFERRED TO [address] [place] [address] REHAB ON 11/18/18. PT REPORTS TOOK HIS LAST DOSE HERE IN DETOX AND HAS CONTINUED ON SUBOXONE IN DETOX AND REHAB TILL DATE. [facility] RX FOR 7DAYS SUBOXONE AND NARCAN NASAL SPRAY ORDERED UNTIL PT CAN GET TO HIS PROVIDER DR. 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 ALERT O X 3. DENIES S/H/I. Home Medications Medication Instructions Recorded Buprenorphine/Naloxone [Suboxone 1 each SL BID #14 packet MDD 2 11/21/18 8Mg/2Mg Sl Film -] Naloxone HCl [Narcan] 4 mg NS ONCE #1 spray 11/21/18 Vital Signs 11/21/18 06:30 Temperature 97.8 F Pulse Rate 75 Respiratory 20 Rate Blood Pressure 132/75 NAD PLAN:FOLLOW UP WITH YOUR SUBOXONE PROVIDER DR. SEPULVEDA INDICATED ABOVE. FOLLOW UP WITH CD AFTERCARE AT THE [facility].
[2018-11-21 11:38] VITALS: TEMP 78
[2018-11-21 11:40] VITALS: BP 152/75; PULSE 77
== END 2018-11-21 12:35 | disposition left against medical advice (07) | DRG 770 ==
LOC: YASAS 13:34 → Y5N 13:35
PROVIDERS: ADMIT Neuromusculoskeletal Medicine & OMM; ATTEND Neuromusculoskeletal Medicine & OMM
PROC: HZ42ZZZ Group Counseling for Substance Abuse Treatment, Cognitive-Behavioral (ICD-10-PCS; principal; 2018-11-18)
DX: F10.20 Alcohol dependence, uncomplicated (principal); F11.20 Opioid dependence, uncomplicated; I10 Essential (primary) hypertension; B18.2 Chronic viral hepatitis C; G40.909 Epilepsy, unspecified, not intractable, without status epilepticus